=== PATIENT | female | born 1980 | race Caucasian/White ===

== ENCOUNTER 2021-05-17 09:02 | Emergency (ER) | payer SELFPAY ==
[2021-05-17 10:24] LABS: Basophils % 0.4 % (0-1.3); Hematocrit 38.6 % (36.0-45.0); Lymphocytes % 24.8 % (15.3-44.8); MPV 7.9 fL (7.6-11.3)
[2021-05-17 10:32] LABS: BUN Blood Urea Nitrogen 7 mg/dL (7-18); Bicarbonate 28 mmol/L (21-32); Glucose Level 95 mg/dL (74-106); NT PRO-BNP 86 pg/mL (<125); Potassium 3.5 mmol/L (3.5-5.1); Sodium Level 143 mmol/L (136-145); Troponin (Emerg Dept Use Only) < 0.02 ng/mL (0.0-0.045)
--- NOTE | 2021-05-17 10:33 | RAD REPORT ---
EXAM DESCRIPTION: RAD - Chest Single View - 05/17/2021 10:01 am CLINICAL HISTORY: CHEST PAIN Chest pain. COMPARISON: No comparisons FINDINGS: Portable technique limits examination quality. Subtly prominent interstitial lung markings could indicate bronchitis or viral infection. The heart i s normal in size. No displaced fractures.
[2021-05-17] MEDS ORDERED: KETOROLAC 30 MG/ML INJ ONE (12:33)
[2021-05-17 13:42] LABS: Protime INR 0.96
--- NOTE | 2021-05-17 13:49 | ER ---
Nurse's Notes [facility] Name: Dustin Cooper Age: 40 yrs Sex: Female : 1980 Arrival Date: 05/17/2021 Time: 09:03 Bed 16 Private MD: Diagnosis: Chest pain, unspecified Presentation: 05/17 09:09 Chief complaint: Patient states: Non-radiating, sharp chest pain started x 1 hr, jl7 constant. Coronavirus screen: Vaccine status: Patient reports receiving the 2nd dose of the covid vaccine. Date March 2021 Moderna. Ebola Screen: No symptoms or risks identified at this time. Initial Sepsis Screen: Does the patient meet any 2 criteria? No. Patient's initial sepsis screen is negative. Does the patient have a suspected source of infection? No. Patient's initial sepsis screen is negative. Risk Assessment: Do you want to hurt yourself or someone else? Patient reports no desire to harm self or others. Onset of symptoms was May 17, 2021 at 08:00. 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 - Social history:: Smoking status: Patient reports the use of cigarette tobacco products. - Family history:: not pertinent. - Hospitalizations: : No recent hospitalization is reported. Screenin:08 Abuse screen: Denies threats or abuse. Denies injuries from another. Nutritional es2 screening: No deficits noted. Tuberculosis screening: No symptoms or risk factors identified. Fall Risk IV access (20 points). Gait- Normal/Bed Rest/Wheelchair (0 pts). Assessment: 10:32 Reassessment:. Reassessment: Patient and/or family updated on plan of care and expected es2 duration. Pain level reassessed. Patient is alert, oriented x 3, equal unlabored respirations, skin warm/dry/pink. General: Appears comfortable, well groomed, Behavior is calm, cooperative, appropriate for age. Pain: Complains of pain in chest Pain radiates to L shoulder Pain currently is 7 out of 10 on a pain scale. Pain began. Neuro: Level of Consciousness is awake, alert, obeys commands, Oriented to person, place, time, situation, Appropriate for age Gait is steady, Speech is normal, Facial symmetry appears normal. Cardiovascular: Reports chest pain. Respiratory: Airway is patent Respiratory effort is even, unlabored, Respiratory pattern is regular, symmetrical. GI: No signs and/or symptoms were reported involving the gastrointestinal system. : No signs and/or symptoms were reported regarding the genitourinary system. EENT: No signs and/or symptoms were reported regarding the EENT system. Derm: Skin is intact, is healthy with good turgor, Skin is dry, Skin is pink, warm \T\ dry. Skin temperature is warm. Musculoskeletal: Capillary refill < 3 seconds, Range of motion: intact in all extremities. 10:34 Reassessment: MD aware of patient's pain. es2 11:58 Reassessment: MD Madelaine aware of patient's chest pain. es2 13:11 Reassessment: Patient and/or family updated on plan of care and expected duration. Pain es2 level reassessed. Patient is alert, oriented x 3, equal unlabored respirations, skin warm/dry/pink. General: Appears comfortable, Behavior is calm, cooperative, appropriate for age. Neuro: Level of Consciousness is awake, alert, obeys commands, Oriented to person, place, time, situation, Appropriate for age. Vital Signs: 09:09 BP 111 / 87; Pulse 94; Resp 17; Temp 98.1(O); Pulse Ox 96% on R/A; Weight 74.84 kg; jl7 Height 5 ft. 2 in. (157.48 cm); Pain 7/10; 10:21 BP 123 / 86; Pulse 79; Resp 12; Pulse Ox 94% on R/A; es2 10:50 BP 114 / 90; Pulse 72; Resp 18; Pulse Ox 95% on R/A; es2 11:30 BP 113 / 98; Pulse 72; Resp 15; Pulse Ox 95% on R/A; es2 12:00 BP 118 / 91; Pulse 71; Resp 22; Pulse Ox 93% on R/A; es2 12:30 BP 115 / 93; Pulse 74; Resp 12; Pulse Ox 94% on R/A; es2 13:00 BP 117 / 83; Pulse 74; Resp 12; Pulse Ox 92% on R/A; es2 14:01 BP 127 / 97; Pulse 81; Resp 18; Pulse Ox 100% ; es2 09:09 Body Mass Index 30.18 (74.84 kg, 157.48 cm) jl7 ED Course: 09:03 Patient arrived in ED. mr 09:11 Triage completed. jl7 09:11 Arm band placed on right wrist. jl7 09:14 Vivek Burkett MD is Attending Physician. rn 10:01 XRAY Chest (1 view) In Process Unspecified. EDDE 10:06 Inserted saline lock: 22 gauge in left antecubital area, using aseptic technique. ss ,using aseptic technique. Insertion VIA ultrasound guided. Blood collected. Patient maintains SpO2 saturation greater than 95% on room air. 11:07 Patient has correct armband on for positive identification. Bed in low position. Call es2 light in reach. monitoring tech on. Pulse ox on. NIBP on. 11:07 Basic Metabolic Panel Sent. es2 11:07 No provider procedures requiring assistance completed. es2 14:10 IV discontinued, intact, bleeding controlled, No redness/swelling at site. Pressure es2 dressing applied. Administered Medications: 12:12 Drug: Ketorolac 15 mg Route: IVP; Site: left antecubital; es2 12:12 Follow up: Response: No adverse reaction es2 Outcome: 13:48 Discharge ordered by . rn 13:59 Condition: stable es2 14:10 Discharged to home ambulatory. es2 14:10 Discharge instructions given to patient, Instructed on discharge instructions, follow up and referral plans. Demonstrated understanding of instructions, follow-up care. 14:10 Patient left the ED. es2 Signatures: Dispatcher [employer] [facility] Trini Young mr Vivek Burkett MD MD rn Smirch, Shelby, RN RN ss Leal, Jahala, RN RN jl7 Indira Mendoza RN RN es2 Corrections: (The following items were deleted from the chart) 11:15 10:47 CORONAVIRUS+CARLTONAman drawn and sent. es2 EDMS 13:12 13:11 Cardiovascular: Reports es2 es2
--- NOTE | 2021-05-17 13:49 | EDPHYS ---
Physician Documentation [facility] Name: Dustin Cooper Age: 40 yrs Sex: Female : 1980 Arrival Date: 05/17/2021 Time: 09:03 Bed 16 Private MD: ED Physician Vivek Burkett HPI: 05/17 10:04 This 40 yrs old Female presents to ER via Ambulatory with complaints of Chest rn Pain. 10:04 The patient or guardian reports chest pain that is located primarily in the anterior rn chest wall, left. Onset: 1 hour(s) ago. The pain does not radiate. Associated signs and symptoms: Pertinent positives: shortness of breath, Pertinent negatives: abdominal pain, cough, diaphoresis, headache, syncope, vomiting. The chest pain is described as sharp. Duration: The patient or guardian reports a single episode, that is still ongoing. Modifying factors: The symptoms are alleviated by nothing. the symptoms are aggravated by deep breath, palpation of area. Severity of pain: At its worst the pain was moderate in the emergency department the pain has improved. The patient has experienced a previous episode. The patient has not recently seen a physician. Patient reports mid and left-sided chest pain, sharp, worse with deep breath and palpation. No recent illness. Is a smoker. No chronic cardiac or pulmonary issues. Does report told in the past has mitral valve prolapse. No trauma. No Covid symptoms. Reports similar pain a week ago that went away after an hour on its own.. 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 - Social history:: Smoking status: Patient reports the use of cigarette tobacco products. - Family history:: not pertinent. - Hospitalizations: : No recent hospitalization is reported. ROS: 10:04 Constitutional: Negative for fever, chills, and weight loss, Eyes: Negative for injury, rn pain, redness, and discharge, Neck: Negative for injury, pain, and swelling, Cardiovascular: Negative for palpitations, and edema, Respiratory: Negative for cough, wheezing Abdomen/GI: Negative for abdominal pain, nausea, vomiting, diarrhea, and constipation, Back: Negative for injury and pain, : Negative for injury, bleeding, discharge, and swelling, MS/Extremity: Negative for injury and deformity, Skin: Negative for injury, rash, and discoloration, Neuro: Negative for headache, weakness, numbness, tingling, and seizure. 10:04 All other systems are negative. Exam: 10:04 Constitutional: This is a well developed, well nourished patient who is awake, alert, rn and in no acute distress. Head/Face: Normocephalic, atraumatic. Eyes: Pupils equal round and reactive to light, extra-ocular motions intact. Lids and lashes normal. Conjunctiva and sclera are non-icteric and not injected. Cornea within normal limits. Periorbital areas with no swelling, redness, or edema. ENT: No stridor Cardiovascular: Regular rate and rhythm. No pulse deficits. Respiratory: Speaking full sentences, unlabored. No increased work of breathing, no retractions or nasal flaring. Abdomen/GI: Soft, non-tender Skin: Warm, dry with normal turgor. Normal color with no rashes, no lesions, and no evidence of cellulitis. MS/ Extremity: Pulses equal, no cyanosis. Neurovascular intact. Full, normal range of motion. Equal circumference. Neuro: Awake and alert, GCS 15, oriented to person, place, time, and situation. Cranial nerves II-XII grossly intact. Motor strength 5/5 in all extremities. Sensory grossly intact. 10:40 ECG was reviewed by the Attending Physician. rn Vital Signs: 09:09 BP 111 / 87; Pulse 94; Resp 17; Temp 98.1(O); Pulse Ox 96% on R/A; Weight 74.84 kg; jl7 Height 5 ft. 2 in. (157.48 cm); Pain 7/10; 10:21 BP 123 / 86; Pulse 79; Resp 12; Pulse Ox 94% on R/A; es2 10:50 BP 114 / 90; Pulse 72; Resp 18; Pulse Ox 95% on R/A; es2 11:30 BP 113 / 98; Pulse 72; Resp 15; Pulse Ox 95% on R/A; es2 12:00 BP 118 / 91; Pulse 71; Resp 22; Pulse Ox 93% on R/A; es2 12:30 BP 115 / 93; Pulse 74; Resp 12; Pulse Ox 94% on R/A; es2 13:00 BP 117 / 83; Pulse 74; Resp 12; Pulse Ox 92% on R/A; es2 14:01 BP 127 / 97; Pulse 81; Resp 18; Pulse Ox 100% ; es2 09:09 Body Mass Index 30.18 (74.84 kg, 157.48 cm) jl7 MDM: 09:14 Patient medically screened. rn 13:47 Differential diagnosis: acute myocardial infarction, acute pericarditis, anxiety, rn coronary artery disease chest wall pain, costochondritis, gastroesophageal reflux disease (GERD), pleurisy, pneumonia, pneumothorax, pulmonary embolus. Data reviewed: vital signs, nurses notes, lab test result(s), EKG, radiologic studies, plain films, and as a result, I will discharge patient. 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 Interpretation: normal. Counseling: I had a detailed discussion with the patient and/or guardian regarding: the historical points, exam findings, and any diagnostic results supporting the discharge/admit diagnosis, lab results, radiology results, the need for outpatient follow up, to return to the emergency department if symptoms worsen or persist or if there are any questions or concerns that arise at home. Response to treatment: the patient's symptoms have mildly improved after treatment, and as a result, I will discharge patient. Special discussion: I discussed with the patient/guardian in detail that at this point there is no indication for admission to the hospital. It is understood, however, that if the symptoms persist or worsen the patient needs to return immediately for re-evaluation. 13:49 Counseling: I had a detailed discussion with the patient and/or guardian regarding: rn smoking cessation. 05/17 09:20 Order name: Basic Metabolic Panel rn 05/17 09:20 Order name: CBC with Diff; Complete Time: 10:51 rn 05/17 09:20 Order name: NT PRO-BNP; Complete Time: 10:38 rn 05/17 09:20 Order name: PT-INR; Complete Time: 13:47 rn 05/17 09:20 Order name: Troponin (emerg Dept Use Only); Complete Time: 10:38 rn 05/17 09:20 Order name: D-Dimer; Complete Time: 13:47 rn 05/17 09:20 Order name: XRAY Chest (1 view); Complete Time: 10:38 rn 05/17 09:20 Order name: EKG; Complete Time: 09:20 rn 05/17 09:20 Order name: Cardiac monitoring; Complete Time: 11:07 rn 05/17 09:20 Order name: EKG - Nurse/Tech; Complete Time: 09:32 rn 05/17 09:20 Order name: Basic Metabolic Panel; Complete Time: 10:38 EDMS 05/17 12:10 Order name: SARS-COV-2 RT PCR; Complete Time: 12:15 EDMS 05/17 09:20 Order name: IV Saline Lock; Complete Time: 11:07 rn 05/17 09:20 Order name: Labs collected and sent; Complete Time: 11:07 rn 05/17 09:20 Order name: O2 Per Protocol; Complete Time: 09:32 rn 05/17 09:20 Order name: O2 Sat Monitoring; Complete Time: 09:32 rn EC:40 Rate is 78 beats/min. Rhythm is regular. QRS [place] is Normal. [place] interval is normal. QRS rn interval is normal. QT interval is normal. No Q waves. T waves are Normal. No ST changes noted. Clinical impression: NSR w/ Non-specific ST/T Changes. Interpreted by me. Reviewed by me. Administered Medications: 12:12 Drug: Ketorolac 15 mg Route: IVP; Site: left antecubital; es2 12:12 Follow up: Response: No adverse reaction es2 Disposition Summary: 05/17/21 13:48 Discharge Ordered Location: Home rn Problem: new rn Symptoms: have improved rn Condition: Stable rn Diagnosis - Chest pain, unspecified rn Followup: rn - With: Private Physician - When: As needed - Reason: Recheck today's complaints, Re-evaluation by your physician Discharge Instructions: - Discharge Summary Sheet rn - Nonspecific Chest Pain, Adult rn Forms: - Medication Reconciliation Form rn - Thank You Letter rn - Antibiotic furniture inspector - Prescription Opioid Use rn Signatures: Dispatcher [employer] EDVivek Askew MD MD rn Leal, Jahala, RN RN [email or web address] Indira Mendoza RN RN es2 Corrections: (The following items were deleted from the chart) 11:15 10:39 CORONAVIRUS+MR.LAB.BRZ ordered. EDMS EDMS
[2021-05-17 14:29] VITALS: TEMP 98.1
[2021-05-17 14:38] VITALS: BP 127/97; O2SAT 100
--- NOTE | 2021-05-18 10:27 | EKG ---
Test Date: 2021-05-17 Test Time: 09:30:03 Certified Medical Technician Assistant: FRENCH MEASUREMENT RESULTS: Intervals: Rate: 78 TN: 160 QRSD: 90 QT: 390 QTc: 444 [place]: P: 46 TN: 160 QRS: 40 T: 45 INTERPRETIVE STATEMENTS: Normal sinus rhythm Possible Left atrial enlargement Borderline ECG No previous ECG available for comparison Electronically Signed On 05-18-21 10:22:21 CDT by Jose Gonsalves
== END 2021-05-17 14:10 | disposition home or self-care (01) ==
LOC: ER 09:02
DX: R07.9 Chest pain, unspecified (principal); Z20.822 Contact with and (suspected) exposure to COVID-19; Z72.0 Tobacco use
CPT/HCPCS: 36415; 71045; 80048; 83880; 84484; 85025; 85379; 85610; 93005; 96374; 99285; U0003